=== PATIENT | male | born 1955 | race Caucasian/White ===

== ENCOUNTER 2023-06-29 03:58 | Day surgery (SDC) | payer OTHER ==
[2023-06-23 14:32] VITALS: BMI 28.3
[2023-06-29] MEDS ORDERED: LIDOCAINE HCL/PF 2% SDV 5ML VIAL ONE (14:48)
[2023-06-29] MEDS ORDERED: PROPOFOL 20 ML ONE (14:48)
[2023-06-29] MEDS ORDERED: MIDAZOLAM HCL 2 MG/2 ML SINGLE DOSE VIAL ONE (14:49)
[2023-06-29] MEDS ORDERED: ceFAZolin SODIUM 1 GM VIAL ONE (15:23)
[2023-06-29] MEDS ORDERED: DEXAMETHASONE SOD PHOSPHATE 4 MG/1 ML VIAL ONE (15:23)
[2023-06-29] MEDS: ceFAZolin SODIUM 1 GM VIAL IVPB ONE (15:25)
[2023-06-29] MEDS ORDERED: KETOROLAC TROMETHAMINE 30 MG/1 ML VIAL ONE (16:11)
[2023-06-29] MEDS ORDERED: ONDANSETRON 4 MG/2 ML VIAL ONE (16:11)
[2023-06-29] MEDS ORDERED: ONDANSETRON 4 MG/2 ML VIAL IVPUSH PRN (16:29)
[2023-06-29] MEDS ORDERED: oxyCODONE HCL 5 MG TABLET PO PRN ×2 (16:29)
[2023-06-29] MEDS ORDERED: PROMETHAZINE HCL 25 MG/1 ML VIAL IVPB PRN (16:29)
[2023-06-29] MEDS ORDERED: ACETAMINOPHEN INJECTION 100 ML IVPB ONE (16:37)
[2023-06-29] MEDS: ACETAMINOPHEN 1000 MG/100 ML BAG IVPB ONE (16:38)
[2023-06-29] MEDS: LACTATED RINGERS SOLUTION 1,000 ML IV SCH (17:30)
[2023-06-29 17:57] VITALS: RESP 20; TEMP 97.8
[2023-06-29 18:31] VITALS: BP 128/68; PULSE 80
== END 2023-06-29 18:32 | disposition home or self-care (01) ==
LOC: JASU-SURG 03:58
PROVIDERS: ATTEND Urology
PROC: 0VT08ZZ Resection of Prostate, Via Natural or Artificial Opening Endoscopic (ICD-10-PCS; principal; 2023-06-29 14:00)
DX: N40.1 Benign prostatic hyperplasia with lower urinary tract symptoms (principal); R33.8 Other retention of urine
CPT/HCPCS: 88305-TC; 94760; J0131